=== PATIENT | female | born 1960 | race Caucasian/White ===

== ENCOUNTER 2016-09-17 17:52 | Emergency (ER) | payer MEDICAID ==
[2016-09-17 18:18] VITALS: BP 140/87; PULSE 66; RESP 18; TEMP 97.9; O2SAT 87
--- NOTE | 2016-09-17 19:25 | EDPHY ---
H & P Stated Complaint: Cat scratch, ?abrasion/laceration to L cheek. Time Seen by Provider: 09/17/16 19:09 HPI/ROS: Chief Complaint: Abrasion to left cheek HPI: The patient presents to the ED with an abrasion to her left cheek after she was scratched by a cat. The patient was concerned that she needed to be evaluated by plastic surgeon. She denies additional complaints. Tetanus is up- to-date. REVIEW OF SYSTEMS: Neuro: no headache, numbness, weakness Musculoskeletal: as above Skin: As above Source: Patient Exam Limitations: No limitations - Personal History Current Tetanus/Diphtheria Vaccine: Yes Current Tetanus Diphtheria and Acellular Pertussis (TDAP): Yes Tetanus Vaccine Date: 2015 - Medical/Surgical History Hx Asthma: No Hx Chronic Respiratory Disease: No Hx Diabetes: No Hx Cardiac Disease: No Hx Renal Disease: No Hx Cirrhosis: No Hx Alcoholism: No Hx HIV/AIDS: No Hx Splenectomy or Spleen Trauma: No Other PMH: Denies. - Social History Smoking Status: Never smoked - Physical Exam Exam: General: No acute distress Face: Superficial long linear abrasion to left cheek, nonsuturable, no deep dermal layers involved Constitutional: Initial Vital Signs Temperature (C) 36.6 C 09/17/16 18:14 Heart Rate 66 09/17/16 18:14 Respiratory Rate 18 09/17/16 18:14 Blood Pressure 140/87 H 09/17/16 18:14 O2 Sat (%) 87 L 09/17/16 18:14 O2 Delivery Mode Room Air Allergies/Adverse Reactions: No Known Allergies Allergy (Unverified 09/17/16 18:18) Home Medications: Medication Instructions Recorded NK [No Known Home Meds] 09/17/16 Medical Decision Making ED Course/Re-evaluation: The patient presents to the ED with a nonsuturable abrasion to her left cheek. She is quite concerned that she be able to be seen by plastic surgeon. I did discuss the case with Dr. Griffin Asif who would be happy to see the patient his office tomorrow. The patient will be discharged home with instructions to apply antibiotic ointment to the abrasion twice daily. Departure - Departure Disposition: [facility] Clinical Impression: Facial abrasion Condition: Good Instructions: Abrasion (ED) Additional Instructions: 1. Please apply antibiotic ointment to facial abrasions twice daily. 2. Please follow up with Dr. Griffin Asif from Plastic surgery tomorrow. Please contact his office in the morning for an ER follow-up visit. Referrals: Griffin Asif MD [Medical Doctor] - As per Instructions
== END 2016-09-17 19:54 | disposition home or self-care (01) ==
DX: S00.81XA Abrasion of other part of head, initial encounter (principal); W55.03XA Scratched by cat, initial encounter